=== PATIENT | male | born 1950 | race Caucasian/White ===

== ENCOUNTER → 2018-05-05 | Outpatient (CLI) | payer OTHER | LOC: M RAD 09:44 | DX: Z12.2 Encounter for screening for malignant neoplasm of respiratory organs (principal); F17.200 Nicotine dependence, unspecified, uncomplicated | CPT/HCPCS: G0297 ==

== ENCOUNTER → 2018-11-30 | Outpatient (CLI) | payer MEDICARE ==
--- NOTE | 2018-11-30 08:57 | REP ---
CT CHEST WITHOUT CONTRAST: HISTORY: Nonspecific abnormal lung field finding. Comparison CT study May 05, 2018. This prior screening exam showed a 13 mm nodule in the right lung apex and a 3.5 cm ill-defined opacity in the right lower lobe. CT FINDINGS: On today's CT study, there is a lobulated 12.2 mm nodule in the right lung apex posteriorly. This it is felt to be unchanged from the May 05, 2018 study. The larger opacity previously noted in the right lower lobe has resolved consistent with its having been an inflammatory infiltrate. There are other areas of pleuroparenchymal fibrosis which are felt to be unchanged from the comparison study. In addition, today's examination shows a new 7 mm nodule in the left apex on page 30 of 134 in series 201 of today's study. There is a new 5 mm nodule opacity in the right apex on page 17. There is a ground-glass opacity in the right upper lobe on today's studies 7 mm in diameter projected on page 44 of 134. Scattered normal-sized mediastinal lymph nodes are noted. Coronary artery vascular calcification is visible. No adrenal lesion is seen. There is moderate bilateral upper lobe emphysema. IMPRESSION: Bilateral nodular opacities. The dominant nodule is not the right lung apex measuring 12 mm in greatest diameter. There are several cysts new small nodular opacities. Electronically Signed by Kevin Ch MD 11/30/2018 09:33 A
== END ==
LOC: M RAD 07:10
PROVIDERS: ATTEND Internal Medicine Pulmonary Disease
DX: R91.8 Other nonspecific abnormal finding of lung field (principal)

== ENCOUNTER → 2019-05-25 | Outpatient (CLI) | payer MEDICARE ==
--- NOTE | 2019-05-26 09:54 | REP ---
Clinical: Follow up nodular opacities. Technique: Axial noncontrast images from the thoracic inlet to the upper abdomen with coronal and sagittal re-formations. Comparison: 11/30/2018, 05/05/2018. Findings: The lung mason demonstrate moderate emphysematous changes along with bronchiectasis and scattered scarring and interstitial changes as well as few scattered subtle areas of non solid ill-defined ground-glass opacities suggesting sequelae of prior inflammatory changes. The large area of opacity in the apical right lower lobe on 05/05/2018 has resolved. Area of ill-defined opacity in the lingula appears slightly more prominent than prior examination but may reflect a new area of inflammatory change as compared with prior examinations. The 1.3 cm nodular solid density in the medial right apex is unchanged. Mild mediastinal lymph nodes measuring up to approximately 1.5 cm remain unchanged. No new area of consolidation, new nodule or mass lesion identified. No pleural effusion. Tracheobronchial tree appears patent. Atherosclerotic changes to the thoracic aorta and coronary arteries noted without aortic aneurysm or cardiomegaly. No significant pericardial effusion. Osseous structures intact without focal abnormality. Impression: 1. 1.3 cm nodular solid density in the right apex along with mediastinal lymph nodes remain unchanged. 2. Subtle increased areas of opacity in the lingula surrounding chronic stable changes may reflect a small focal area of acute inflammatory process. 3. No further acute pleuroparenchymal process appreciated. Electronically Signed by Bud Milan MD 05/26/2019 09:45 A
== END ==
LOC: M RAD 09:17
PROVIDERS: ATTEND Internal Medicine Pulmonary Disease
DX: R91.8 Other nonspecific abnormal finding of lung field (principal)

== ENCOUNTER → 2019-08-20 | Outpatient (CLI) | payer MEDICARE ==
--- NOTE | 2019-08-20 11:12 | REP ---
CT CHEST WITHOUT IV CONTRAST: CT chest performed without IV contrast and compared to prior studies of 05/25/2019, and 11/30/2018 and 05/05/2018. Once again in the right upper lobe medially, there is a 1.3 cm nodular density. This has remained stable since the 05/05/2018 exam. No new nodule is seen bilaterally. There is mild diffuse bronchiolar wall thickening bilaterally. Previously noted reticulonodular ill-defined opacities in the upper lobes have significantly improved and largely have resolved, consistent with resolved inflammatory changes. There are some mild underlying fibrotic change scattered bilaterally. The heart is not enlarged. There is no thoracic aortic aneurysm. There is no pleural or pericardial effusion. Subcentimeter mediastinal lymph nodes are present without adenopathy in the axillary or mediastinal regions. There are degenerative changes of the spine. IMPRESSION: There is a right upper lobe nodule 1.3 cm in diameter which is stable since 05/05/2018. No new nodules bilaterally. Improved mild reticulonodular opacities bilaterally compatible with improved inflammatory changes. Electronically Signed by Stuart Duenas MD 08/20/2019 04:47 P
== END ==
LOC: M RAD 08:52
PROVIDERS: ATTEND Internal Medicine Pulmonary Disease
DX: R91.1 Solitary pulmonary nodule (principal)

== ENCOUNTER 2020-08-07 08:52 | Inpatient (IN) | payer MEDICARE ==
[~2020-08-07] VITALS: Ht 190.5 cm; Wt 82.6 kg
[2020-08-07] MEDS ORDERED: CILO100T PO (09:10)
[2020-08-07] MEDS ORDERED: ATOR1TAB19 PO (09:10)
[2020-08-07] MEDS ORDERED: PANT20TA6 PO (09:10)
[2020-08-07] MEDS ORDERED: METO1TAB87 PO (09:10)
[2020-08-07] MEDS ORDERED: LEVO500T3 PO (09:10)
[2020-08-07] MEDS ORDERED: INCR1INH INH (09:10)
[2020-08-07] MEDS ORDERED: VENTAER INH (09:10)
[2020-08-07] MEDS ORDERED: PERI4TAB PO (09:10)
[2020-08-07] MEDS ORDERED: BREO1INH INH (09:10)
[2020-08-07] MEDS ORDERED: MORPHINE 2 MG/ML 1ML VIAL (J2270) IV ONE (10:00)
[2020-08-07] MEDS ORDERED: PANTOPRAZOLE 40MG VIAL (C9113 PER 1) IV ONE (10:00)
[2020-08-07] MEDS ORDERED: NS 1,000 ML IV ONE (10:00)
[2020-08-07] MEDS ORDERED: ONDANSETRON 4MG/2ML VIAL IV PRN ×2 (10:00→14:45)
[2020-08-07 11:05] LABS: BASO % 0.2 % (0.0-1.0); EOS % 0.2 % (0.0-3.0); HEMOGLOBIN 12.7 g/dl (13.5-17.5); LYMPH # 2.3 10^3/uL (1.5-5.0); LYMPH % 39.3 % (24.0-44.0); MEAN CORPUSCULAR HEMOGLOBIN 30.6 pg (27.0-33.0); MEAN CORPUSCULAR HGB CONC 32.6 g/dl (32.0-36.5); MONO # 0.5 10^3/uL (0.0-0.8); MONO % 8.7 % (0.0-5.0); NEUTROPHILS % 51.1 % (36.0-66.0); PLATELET COUNT, AUTOMATED 179 10^3/uL (150-450); RED BLOOD COUNT 4.15 10^6/uL (4.30-6.10); WHITE BLOOD COUNT 5.8 10^3/uL (4.0-10.0)
[2020-08-07 11:43] LABS: ALT/SGPT 131 U/L (12-78); BILIRUBIN,DIRECT 0.2 MG/DL (0.0-0.2); BILIRUBIN,TOTAL 0.5 MG/DL (0.2-1.0); BLOOD UREA NITROGEN 11 MG/DL (7-18); CARBON DIOXIDE LEVEL 29 MEQ/L (21-32); CHLORIDE LEVEL 103 MEQ/L (98-107); CREATININE FOR GFR 0.87 MG/DL (0.70-1.30); GLOMERULAR FILTRATION RATE > 60.0 (>42); GLUCOSE, FASTING 89 MG/DL (70-100); LIPASE 302 U/L (73-393); POTASSIUM SERUM 4.8 MEQ/L (3.5-5.1); SODIUM LEVEL 135 MEQ/L (136-145); TOTAL PROTEIN 6.8 GM/DL (6.4-8.2)
[2020-08-07] MEDS ORDERED: ISOVUE-370 76% 100ML VIAL As Ordered ONE (11:52)
--- NOTE | 2020-08-07 13:00 | REP ---
INDICATION: Partial Bowel Obstruction diag. on 08/02/20. COMPARISON: None. TECHNIQUE: Abdomen and pelvis CT with IV contrast, without bowel contrast. FINDINGS: Reportedly there was a partial small-bowel obstruction on 08/02/2020. There are no prior studies from 08/02/2020 for review. There are dilated mid and proximal small bowel loops containing occasional air-fluid levels compatible with bowel obstruction. The distal small bowel loops are nondilated. There is no pneumoperitoneum. There is no ascites. The visualized lung mason are unremarkable. The hepatic parenchyma, gallbladder, pancreas, spleen, adrenals and kidneys are unremarkable. The abdominal aorta is unremarkable except for calcified atheroma. There is no periaortic adenopathy or mass. Pelvis: The bladder is unremarkable. The prostate is moderately enlarged. There is no adenopathy or free fluid. The pelvic bowel loops are unremarkable. There is a small accessory spleen anterior to the spleen and there is a small accessory spleen medial to the spleen. There calcifications in the pelvis, likely phleboliths. There are bilateral L5 pars interarticularis defects and grade 1 L5 spondylolisthesis. There is degenerative disc disease in the lumbar spine. IMPRESSION: There are no prior studies from 08/02/2020 for review. There are dilated mid and proximal small bowel loops with multiple air-fluid levels compatible with small bowel obstruction. There is no colonic distention. There is no pneumoperitoneum or hemoperitoneum. Two small accessory spleens are incidentally noted. Incidentally noted are bilateral L5 pars defects and grade 1 L5 spondylolisthesis. There is degenerative disc disease in the lumbar spine. <Electronically signed by Stuart Murray > 08/07/20 [id number]
[2020-08-07] MEDS ORDERED: PERI2TAB PO (13:48)
[2020-08-07] MEDS ORDERED: BREO1INH3 INH (13:48)
[2020-08-07] MEDS ORDERED: MORPHINE 2 MG/ML 1ML VIAL (J2270) IV PRN (14:45)
[2020-08-07] MEDS ORDERED: ACETAMINOPHEN TAB 650MG DOSE (2X325MG) PO PRN (14:45)
[2020-08-07] MEDS ORDERED: ALBUTEROL 90 MCG/ACT 8GM HFA INHALER INH PRN (14:45)
[2020-08-07 18:00] VITALS: BP 136/68
[2020-08-07] MEDS: LR 1,000 ML IV SCH (18:03)
[2020-08-07] MEDS: PANTOPRAZOLE 40MG VIAL (C9113 PER 1) IV SCH (20:17)
[2020-08-07] MEDS: ADVAIR HFA 230/21MCG INHALER INH SCH (20:44)
[2020-08-07 22:00] VITALS: BP 135/67
--- NOTE | 2020-08-08 00:32 | ECGEPIP ---
[facility] - ED Test Date: 2020-08-07 Pat Name: THANH SHARMA Department: Room: - Gender: Male Tank Cooper: aydin : 1950 Requested By: MELISSA MALLOY PA-C. Order Number: [id number] Reading MD: Naman Davis Measurements Intervals [place] Rate: 60 P: 64 UT: 200 QRS: 72 QRSD: 102 T: 61 QT: 408 QTc: 410 Interpretive Statements SINUS RHYTHM NSTTW ABNORMALITY(S) NO PRIORS FOR COMPARISON Electronically Signed on 08-08-2020 0:32:12 EST by Naman Davis
[2020-08-08 02:00] VITALS: BP 132/67
[2020-08-08] MEDS: LR 1,000 ML IV SCH ×3 (04:09→19:55)
[2020-08-08 06:00] VITALS: BP 118/65
[2020-08-08] MEDS: ADVAIR HFA 230/21MCG INHALER INH SCH ×2 (07:28→19:37)
--- NOTE | 2020-08-08 07:47 | HPE ---
HISTORY AND PHYSICAL DATE OF ADMISSION: 08/07/2020 ADMITTING DIAGNOSIS: Abdominal pain. HISTORY OF PRESENT ILLNESS: The patient is a 69-year-old man who presented to the emergency department on 08/07/2020 complaining of abdominal pain. He reported that he had been having some epigastric discomfort over the last 2-3 weeks in particular. He has been able to eat. He reported that sometimes food actually improved his pain. Pain was intermittent. He had noticed some abdominal bloating with increased gas. He was seen at [facility] on 08/02/2020 and apparently was evaluated with some laboratory studies and a CT scan. They reportedly told him that he had a bowel obstruction. The patient reports that his requires assistance at home and he was not able to just leave her untended to and come into the hospital so he has spent the last few days making arrangements and so today came to [facility] for reevaluation. He reports that he has been having some flatus. He indicates that he has been having some small bowel movements. He has been trying to eat and has not had any nausea or vomiting. The epigastric pain again has worsened gradually over time but is intermittent. He has had no signs of bleeding. He does report a prior history of peptic ulcer disease some years ago. At that time, he was evaluated with endoscopy and treated with medication with resolution of his discomfort. ALLERGIES: The patient has no known drug allergies. CURRENT MEDICATIONS: Include: - Breo Ellipta inhaler 200/25 mcg one inhalation daily - Incruse Ellipta inhaler 62.5 mcg one puff inhaled daily - albuterol two puffs inhaled every 4 hours as needed for wheezing - atorvastatin 10 mg by mouth nightly - cilostazol 100 mg by mouth nightly - levofloxacin 500 mg by mouth daily - metoprolol 25 mg by mouth nightly - Protonix 20 mg by mouth daily - Perindopril erbumine 2 mg by mouth nightly SURGICAL HISTORY: He did have a colonoscopy approximately 3-5 years ago and also has undergone prior upper endoscopy on two or three occasions. MEDICAL HISTORY: He has a history of hypertension. He has hyperlipidemia. He has had diverticulitis in the past and has diverticulosis. He has had peptic ulcer disease. He is a former smoker who quit some time ago but had a significant lifetime usage and has chronic obstructive pulmonary disease. He reports a history of some atherosclerotic peripheral vascular disease in his lower extremities with a past history of calf claudication. FAMILY HISTORY: Noncontributory. SOCIAL HISTORY: He is no longer smoking. 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 He made arrangements for her care before he came in today. He denies any significant alcohol intake. REVIEW OF SYSTEMS: Shows no history of chest pain or palpitations. He does have some shortness of breath with exertion and some wheezing at times. He has no cough or hemoptysis. There is no history of dysuria or hematuria. His gastrointestinal (GI) systems are reviewed in the history of the present illness. He denies any bone or joint issues currently and reports that he is not currently having any claudication with ambulation. He denies any history of seizure or stroke and has no history of deep venous thrombosis (DVT) or pulmonary embolus. PHYSICAL EXAMINATION: Patient has been alert and oriented. Vital signs show him to be afebrile with a pulse in the 60-70s and a normal blood pressure. Skin is warm and dry. Sclerae are anicteric. Mucous membranes are moist. The neck is supple without mass or bruit. Heart exam shows a regular rhythm. The lungs show distant breath sounds bilaterally without any wheezes or rhonchi. Abdomen is mildly protuberant. He has bowel sounds present. There is some tympany to percussion in his epigastrium. On palpation there is no tenderness to palpation throughout the abdomen. There is no evidence of umbilical or inguinal hernia. No masses appreciated. Lower extremities show the skin to be intact with no edema. There are no palpable pulses in his feet but the tissues are well perfused. LABORATORY STUDIES: Reveal a white count of 6, hemoglobin 13, hematocrit 39, and a platelet count of 179,000. Differential count is normal. Chemistry profile shows sodium 135, potassium 4.8, chloride 103, CO2 of 29, BUN of 11, creatinine 0.9, and glucose of 89. AST and ALT are both very slightly elevated at 63 and 131, respectively. The alkaline phosphatase and total bilirubin are normal. Lipase is normal at 302 and the lactic acid was 1.4. Urinalysis was not suggestive of infection. COVID test was negative. CT scan of the abdomen and pelvis was interpreted by the radiologist as showing some dilated mid and proximal small bowel loops suggestive of a small bowel obstruction. There was some air and stool in the colon. There was no free air or free fluid. I did not identify a discrete point of obstruction on my review of the imaging. It is clear that there is some distal small bowel that is of normal caliber. IMPRESSION: Patient now has several weeks of apparently gradually worsening but intermittent epigastric pain. He has a past history of peptic ulcer disease and there are some features of his pain that are suggestive of peptic ulcer disease. Chief among these is his report that eating actually reduces his pain for a couple of hours before it returns. He has not been on medications for ulcer disease recently. However, ulcer disease would not account for the obstructive picture on his CT scan. He does have air throughout the gastrointestinal (GI) tract but certainly he does have some mildly to moderately dilated proximal small bowel loops. He has had no abdominal surgery to generate adhesions. PLAN: I have recommended to the patient that he be admitted to the hospital for close monitoring and management of his pain. I have recommended that we keep him nothing by mouth for now, but as he has had no vomiting I see no need for a nasogastric (NG) tube. I will give him some IV hydration and start him on twice daily IV Protonix. He does not appear to require antibiotics at this point. I discussed with him the possibility of an upper endoscopy to evaluate the possibility of underlying peptic ulcer disease and he is agreeable with this plan. If this is unrevealing then a laparoscopy may be appropriate to evaluate the possibility of a proximal small bowel obstruction. We will discuss this further after the upper endoscopy has been completed. The patient had an opportunity to ask questions and is agreeable with this plan of treatment. PADMINI
[2020-08-08] MEDS: PANTOPRAZOLE 40MG VIAL (C9113 PER 1) IV SCH ×2 (09:17→20:53)
[2020-08-08 10:00] VITALS: BP 115/71
[2020-08-08 14:00] VITALS: BP 134/75
[2020-08-08] MEDS ORDERED: propofoL 200 MG/20 ML VIAL As Ordered ONE (17:53)
[2020-08-08] MEDS ORDERED: LIDOCAINE 2% 100MG/5ML SDV (FOR ANES.) As Ordered ONE (17:53)
[2020-08-08] MEDS ORDERED: MIDAZOLAM INJ 2MG/2ML VIAL (J2250 PER 1MG) As Ordered ONE (17:53)
[2020-08-08] MEDS ORDERED: fentaNYL 100 MCG/2 ML INJECTION (J3010) As Ordered ONE (17:53)
[2020-08-08] MEDS ORDERED: ONDANSETRON 4MG/2ML VIAL IV PRN (19:00)
--- NOTE | 2020-08-08 19:21 | ROOR ---
Patient Name: Eric Mcadams Procedure Date: 08/08/2020 5:49 PM Date of : 1950 Age: 69 Gender: Male Note Status: Finalized Procedure: Upper GI endoscopy Indications: Epigastric abdominal pain, Personal history of peptic ulcer disease Providers: Wild Alamo MD Referring MD: 1. No Referring Physician 1. No Referring Physician, Admin. Requesting Provider: Medicines: Monitored Anesthesia Care Complications: No immediate complications. Procedure: Pre-Anesthesia Assessment: - Prior to the procedure, a History and Physical was performed, and patient medications and allergies were reviewed. The patient is competent. The risks and benefits of the procedure and the sedation options and risks were discussed with the patient. All questions were answered and informed consent was obtained. Patient identification and proposed procedure were verified by the physician, the nurse and the infrastructure developer in the procedure room. Mental Status Examination: alert and oriented. Airway Examination: normal oropharyngeal airway and neck mobility. ASA Grade Assessment: III - A patient with severe systemic disease. After reviewing the risks and benefits, the patient was deemed in satisfactory condition to undergo the procedure. The anesthesia plan was to use monitored anesthesia care (MAC). Immediately prior to administration of medications, the patient was re-assessed for adequacy to receive sedatives. The heart rate, respiratory rate, oxygen saturations, blood pressure, adequacy of pulmonary ventilation, and response to care were monitored throughout the procedure. The physical status of the patient was re-assessed after the procedure. The Endoscope was introduced through the mouth, and advanced to the second part of duodenum. The upper GI endoscopy was accomplished without difficulty. The patient tolerated the procedure well. Findings: The examined esophagus was normal. Patchy mildly erythematous mucosa without bleeding was found in the prepyloric region of the stomach. One non-bleeding cratered gastric ulcer with no stigmata of bleeding was found at the pylorus. The lesion was 20 mm in largest dimension. Diffuse severe inflammation characterized by congestion (edema), erosions and erythema was found at the pylorus. Biopsies were taken with a cold forceps for Helicobacter pylori testing. The first portion of the duodenum and second portion of the duodenum were normal. Impression: - Normal esophagus. - Erythematous mucosa in the prepyloric region of the stomach. - Non-bleeding gastric ulcer with no stigmata of bleeding. - Acute gastritis. Biopsied. - Normal first portion of the duodenum and second portion of the duodenum. Recommendation: - Return [facility] to [facility]. - Clear liquid diet. - Continue present medications. - Await pathology results. Procedure Code(s): --- Professional --- 12751, Esophagogastroduodenoscopy, flexible, transoral; with biopsy, single or multiple Diagnosis Code(s): --- Professional --- K31.89, Other diseases of stomach and duodenum K25.9, Gastric ulcer, unspecified as acute or chronic, without hemorrhage or perforation K29.00, Acute gastritis without bleeding R10.13, Epigastric pain Z87.11, Personal history of peptic ulcer disease CPT copyright 2019 [employer]. All rights reserved. The codes documented in this report are preliminary and upon fast food server review may be revised to meet current compliance requirements. Attending Participation: I personally performed the entire procedure. Wild Alamo MD Wild Alamo MD 08/08/2020 7:21:08 PM Electronically signed by Wild Alamo MD Number of Addenda: 0 Note Initiated On: 08/08/2020 5:49 PM Estimated Blood Loss: Estimated blood loss was minimal.
[2020-08-08 22:00] VITALS: BP 139/70
[2020-08-09] MEDS: LR 1,000 ML IV SCH (05:37)
[2020-08-09 06:00] VITALS: BP 153/86
[2020-08-09 06:58] LABS: HEMATOCRIT 37.6 % (42.0-52.0); HEMOGLOBIN 12.4 g/dl (13.5-17.5); PLATELET COUNT, AUTOMATED 238 10^3/uL (150-450)
[2020-08-09 07:27] LABS: BLOOD UREA NITROGEN 10 MG/DL (7-18); CALCIUM LEVEL 8.2 MG/DL (8.8-10.2); CARBON DIOXIDE LEVEL 30 MEQ/L (21-32); CHLORIDE LEVEL 104 MEQ/L (98-107); CREATININE FOR GFR 0.94 MG/DL (0.70-1.30); GLOMERULAR FILTRATION RATE > 60.0 (>42); GLUCOSE, FASTING 93 MG/DL (70-100); POTASSIUM SERUM 4.4 MEQ/L (3.5-5.1); SODIUM LEVEL 137 MEQ/L (136-145)
[2020-08-09] MEDS: ADVAIR HFA 230/21MCG INHALER INH SCH ×2 (08:06→19:05)
[2020-08-09] MEDS ORDERED: E-Z-PAQUE 96% w/w SUSP 176GM BTL As Ordered ONE (08:36)
[2020-08-09] MEDS: PANTOPRAZOLE 40MG VIAL (C9113 PER 1) IV SCH (12:07)
[2020-08-09 14:00] VITALS: BP 137/73
--- NOTE | 2020-08-09 15:04 | REP ---
INDICATION: Possible partial SBO. COMPARISON: CT scan of the abdomen and pelvis with IV contrast dated 03/20/2020. TECHNIQUE: This procedure was performed by Sisi Fierro [facility], under the direct supervision of Dr. Ch. Images were reviewed with Dr. Ch prior to dictation. Liquid barium was administered and the barium column was followed through the small bowel to the level of the terminal ileum. FINDINGS: The community living specialist film shows no organomegaly or pathological masses. The intestinal gas pattern is unremarkable. Small bowel transit time is approximately 140 minutes. During fluoroscopy gentle palpation shows all loops are freely movable and pliable. There is no fixed angulated loops. The proximal small bowel mucosal pattern is normal in course and caliber. The mid ileal loops appear mildly dilated. There is no obstructive lesion visualized.. Spot filming of the terminal ileum shows it to be unremarkable. IMPRESSION: 1. Mild dilation of ileal loops. 2. Small bowel transit time of approximately 140 minutes. 3. Unremarkable terminal ileum. 0.3 minutes of fluoroscopy time was utilized for this procedure. Some fluoroscopic images are performed with last image hold technology. These images require no additional radiation. <Electronically signed by Sisi Fierro > 08/09/20 1347 <Electronically signed by Nicolás Ch > 08/09/20 1500
[2020-08-09] MEDS ORDERED: NORCO, ANEXSIA 5/325MG TABLET (HYDROcodone/ACETAMINOPHEN) PO PRN (15:45)
[2020-08-09 18:00] VITALS: BP 100/61
[2020-08-09] MEDS: PANTOPRAZOLE 40MG TAB (PROTONIX) PO SCH (20:25)
[2020-08-09 22:00] VITALS: BP 128/61
[2020-08-10 06:00] VITALS: BP 148/69
[2020-08-10] MEDS: PANTOPRAZOLE 40MG TAB (PROTONIX) PO SCH (08:03)
[2020-08-10] MEDS: ADVAIR HFA 230/21MCG INHALER INH SCH (08:05)
[2020-08-10 10:00] VITALS: BP 114/63
[2020-08-10] MEDS ORDERED: PANT40TA29 PO (10:46)
--- NOTE | 2020-08-12 16:38 | IPN ---
PROGRESS NOTE DATE: 08/08/2020 HISTORY: Patient was admitted on August 07 with epigastric pain suggestive of a recurrent peptic ulcer. A CT scan had shown some mildly enlarged small-bowel loops in the upper abdomen, which the radiologist felt were suggestive of a small-bowel obstruction, though the patient had no nausea or vomiting but only some mild abdominal distention. Vital signs: Patient has remained afebrile over the past 24 hours. His pulse remains in the 60s. Blood pressure is good. Intake and output show that his urine output has been brisk. PHYSICAL EXAMINATION: Patient has some mild abdominal distention. He has no tenderness to palpation. He has active bowel sounds. TESTING: Patient underwent upper endoscopy late this afternoon and was found to have a large, perhaps 15-20 mm, flat ulcer in the pylorus with some surrounding significant inflammation. Biopsies were obtained from the surrounding tissues for possible Helicobacter pylori. IMPRESSION: Recurrent peptic ulcer disease, presenting now as a large pyloric ulcer. The remainder of the stomach and duodenum all appear fine. PLAN: Patient will be continued on Protonix intravenous (IV), 40 mg twice daily. I have recommended that we obtain a small-bowel follow-through study tomorrow to determine if there is any evidence truly for a bowel obstruction. He will be allowed to take some clear liquids.
--- NOTE | 2020-08-12 16:45 | IPN ---
PROGRESS NOTE DATE: 08/09/2020 HISTORY: Patient was admitted on August 07 with epigastric abdominal pain suggestive of ulcer disease. He had a CT scan suggesting some mildly distended proximal small-bowel loops. An esophagogastroduodenoscopy (EGD) on August 08 shows a large pyloric ulcer with a lot of inflammation. He has been continued on Protonix. His discomfort has diminished with medical therapy. He did tolerate some clear liquids last evening but was nothing by mouth after midnight for his small-bowel study today. Vital signs remains stable, and he is afebrile. Intake and output show that he did have some clear liquids last evening, and his urine output has been good. PHYSICAL EXAMINATION: The abdomen is flat and nondistended. He has active bowel sounds. IMAGING: Patient had his small-bowel follow-through study done today. I reviewed the images myself, as the final radiology report had not been read at this point. The initial image timed 0 minutes shows contract has passed through the stomach and down into the lower abdomen, filling perhaps a third to half of the small-bowel loops. By 140 minutes, the contrast has entered the right colon. There are some small-bowel loops that do appear slightly larger than average, but I do not see any evidence of obstruction on the study. IMPRESSION: Patient was counseled that the small-bowel follow-through, to my read, does not show any significant evidence for obstruction. It does make sense that the peptic ulcer disease is causing his symptoms, and it would be unusual to have at the same time a bowel obstruction without some other risk factors, such as prior surgery, to account for it. I have recommended that we restart a diet and continue his Protonix and await the final reading from the radiologist. If they agree that there is no sign of obstruction, then he can be discharged to continue medical therapy for his ulcer. PLAN: Patient was started on a soft diet. The Protonix will be continued. Once I have the radiologist report, I will let him know what their impression was. The patient's spouse had called and expressed concern about not getting good transfer of information through her to her, and I had a nice talk her with explaining what we had discovered to date. I advised her that if the radiology report also shows no evidence of obstruction, then I anticipate he would be discharged home on Protonix twice daily to treat his ulcer with outpatient followup.
--- NOTE | 2020-08-12 16:51 | IPN ---
PROGRESS NOTE DATE: 08/10/2020 HISTORY: Patient presented with epigastric pain. Esophagogastroduodenoscopy (EGD) showed a large pyloric ulcer, and his small-bowel followthrough study yesterday showed no evidence of obstruction. The report from the radiologist coincided with mine in indicating no evident obstruction. He has tolerated a soft diet. His vital signs remain stable, and he is afebrile. PHYSICAL EXAMINATION: Patient is sitting up on the side of the bed looking quite comfortable. He denies any abdominal pain. The abdomen is nondistended and soft. There are no new labs today. IMPRESSION: Large pyloric ulcer without evidence of intestional obstruction. PLAN: Patient will be discharged home with a prescription for Protonix 40 mg twice daily. He will be provided a 3-month supply at this dose with one refill. He can continue his other medications as before admission, though I have advised him that he should not take any nonsteroidal anti-inflammatory medications out of concern that these can directly irritate the stomach. He was also provided some counseling regarding certain foods to be careful with. He was advised against drinking any alcohol and reported he rarely has alcohol. I have recommended that he followup with me in about 6 weeks or so to schedule a followup upper endoscopy to confirm ulcer healing. At that point, if his ulcer is healed, we can consider cutting his proton pump inhibitor back to a daily dose. Patient was advised that if his pain worsens or he notes evidence of bleeding, that he should return sooner or call for instructions. Patient had an opportunity to ask questions and is agreeable with this plan.
== END 2020-08-10 11:46 | disposition home or self-care (01) | DRG 382 ==
LOC: M ED 08:52 → M ED INP 14:41 → M MSPAV 18:16
PROVIDERS: ADMIT Surgery; ATTEND Surgery
PROC: 0DB78ZX Excision of Stomach, Pylorus, Via Natural or Artificial Opening Endoscopic, Diagnostic (ICD-10-PCS; principal; 2020-08-08 16:00)
DX: K28.9 Gastrojejunal ulcer, unspecified as acute or chronic, without hemorrhage or perforation (principal); E78.5 Hyperlipidemia, unspecified; K57.90 Diverticulosis of intestine, part unspecified, without perforation or abscess without bleeding; I10 Essential (primary) hypertension; K29.00 Acute gastritis without bleeding; J44.9 Chronic obstructive pulmonary disease, unspecified; I70.203 Unspecified atherosclerosis of native arteries of extremities, bilateral legs; Z79.899 Other long term (current) drug therapy; Z87.891 Personal history of nicotine dependence

== ENCOUNTER 2020-11-07 07:47 | Day surgery (SDC) | payer MEDICARE ==
[~2020-11-07] VITALS: Ht 193 cm; Wt 86.6 kg
[~2020-11-07 07:47] MED LIST: ATOR1TAB19 PO; BREO1INH INH; BREO1INH3 INH; CILO100T PO; INCR1INH INH; LEVO500T3 PO; METO1TAB87 PO; NS 1,000 ML IV ONE; PANT20TA6 PO; PANT40TA29 PO; PERI2TAB PO; PERI4TAB PO; VENTAER INH
[2020-11-07] MEDS ORDERED: LIDOCAINE 2% 100MG/5ML SDV (FOR ANES.) As Ordered ONE (08:04)
[2020-11-07] MEDS ORDERED: propofoL 200 MG/20 ML VIAL As Ordered ONE (08:04)
[2020-11-07] MEDS ORDERED: fentaNYL 100 MCG/2 ML INJECTION (J3010) As Ordered ONE (08:48)
--- NOTE | 2020-11-07 09:59 | ROOR ---
Patient Name: Eric Mcadams Procedure Date: 11/07/2020 9:28 AM Date of : 1950 Age: 70 Room: [facility] Gender: Male Note Status: Finalized Procedure: Upper GI endoscopy Indications: Follow-up of acute peptic ulcer Providers: Wild Alamo MD Referring MD: Booker Wetzel MD Requesting Provider: Medicines: Monitored Anesthesia Care Complications: No immediate complications. Procedure: Pre-Anesthesia Assessment: - Prior to the procedure, a History and Physical was performed, and patient medications and allergies were reviewed. The patient is competent. The risks and benefits of the procedure and the sedation options and risks were discussed with the patient. All questions were answered and informed consent was obtained. Patient identification and proposed procedure were verified by the physician, the nurse and the anesthesiologist in the procedure room. Mental Status Examination: alert and oriented. Prophylactic Antibiotics: The patient does not require prophylactic antibiotics. Prior Anticoagulants: The patient has taken no previous anticoagulant or antiplatelet agents. ASA Grade Assessment: II - A patient with mild systemic disease. After reviewing the risks and benefits, the patient was deemed in satisfactory condition to undergo the procedure. The anesthesia plan was to use monitored anesthesia care (MAC). Immediately prior to administration of medications, the patient was re-assessed for adequacy to receive sedatives. The heart rate, respiratory rate, oxygen saturations, blood pressure, adequacy of pulmonary ventilation, and response to care were monitored throughout the procedure. The physical status of the patient was re-assessed after the procedure. The Endoscope was introduced through the mouth, and advanced to the second part of duodenum. The upper GI endoscopy was accomplished without difficulty. The patient tolerated the procedure well. Findings: The examined esophagus was normal. Localized mildly erythematous mucosa without bleeding was found in the prepyloric region of the stomach. The exam of the stomach was otherwise normal. A moderate post-ulcer deformity was found in the duodenal bulb. Impression: - Normal esophagus. - Erythematous mucosa in the prepyloric region of the stomach. - Duodenal deformity. - No specimens collected. - A duodenal ulcer was not seen. Recommendation: - Discharge patient to home. - Resume previous diet. - Continue present medications. Procedure Code(s): --- Professional --- 39780, Esophagogastroduodenoscopy, flexible, transoral; diagnostic, including collection of specimen(s) by brushing or washing, when performed (separate procedure) Diagnosis Code(s): --- Professional --- K31.89, Other diseases of stomach and duodenum K27.3, Acute peptic ulcer, site unspecified, without hemorrhage or perforation CPT copyright 2019 [employer]. All rights reserved. The codes documented in this report are preliminary and upon pst manager review may be revised to meet current compliance requirements. Wild Alamo MD Wild Alamo MD 11/07/2020 9:59:05 AM Electronically signed by Wild Alamo MD Number of Addenda: 0 Note Initiated On: 11/07/2020 9:28 AM Estimated Blood Loss: Estimated blood loss: none.
[2020-11-07 10:10] VITALS: BP 126/74
== END 2020-11-07 10:16 | disposition home or self-care (01) ==
LOC: M OPP 07:47
PROVIDERS: ATTEND Surgery
DX: K27.3 Acute peptic ulcer, site unspecified, without hemorrhage or perforation (principal); K31.89 Other diseases of stomach and duodenum; I10 Essential (primary) hypertension; J44.9 Chronic obstructive pulmonary disease, unspecified; E78.5 Hyperlipidemia, unspecified; Z87.891 Personal history of nicotine dependence; Z79.51 Long term (current) use of inhaled steroids; Z79.899 Other long term (current) drug therapy; Z83.3 Family history of diabetes mellitus
CPT/HCPCS: 43235; J3010